=== PATIENT | female | born 1985 | race Caucasian/White ===

== ENCOUNTER → 2019-10-01 | Outpatient (CLI) | payer OTHER | LOC: LAB 10:51 | PROVIDERS: ATTEND Obstetrics & Gynecology Reproductive Endocrinology | DX: N97.9 Female infertility, unspecified (principal) | CPT/HCPCS: 36415; 82670 ==

== ENCOUNTER → 2019-10-10 | Outpatient (CLI) | payer OTHER | LOC: LAB 09:30 | PROVIDERS: ATTEND Obstetrics & Gynecology Reproductive Endocrinology | DX: N97.9 Female infertility, unspecified (principal) | CPT/HCPCS: 36415; 82670 ==

== ENCOUNTER → 2020-02-06 | Outpatient (CLI) | payer OTHER | LOC: OD 10:49 | PROVIDERS: ATTEND Obstetrics & Gynecology Reproductive Endocrinology | DX: N97.9 Female infertility, unspecified (principal) | CPT/HCPCS: 36415; 82670 ==

== ENCOUNTER → 2020-02-13 | Outpatient (CLI) | payer OTHER | LOC: OD 10:19 | PROVIDERS: ATTEND Obstetrics & Gynecology Reproductive Endocrinology | DX: N97.9 Female infertility, unspecified (principal) | CPT/HCPCS: 36415; 82670; 84144 ==

== ENCOUNTER → 2020-03-02 | Outpatient (CLI) | payer OTHER | LOC: OD 10:17 | PROVIDERS: ATTEND Obstetrics & Gynecology Reproductive Endocrinology | DX: N97.9 Female infertility, unspecified (principal) | CPT/HCPCS: 36415; 84144; 84702 ==